=== PATIENT | female | born 1980 ===

== ENCOUNTER 2020-10-24 14:21 | Emergency (ER) | payer OTHER ==
[~2020-10-24] VITALS: Ht 154.9 cm; Wt 63.0 kg
[2020-10-24 14:28] VITALS: BP 138/73
== END 2020-10-25 01:24 | disposition left against medical advice (07) ==
LOC: ER 14:21
DX: R68.89 Other general symptoms and signs (principal); Z53.21 Procedure and treatment not carried out due to patient leaving prior to being seen by health care provider